=== PATIENT | female | born 1965 | race Caucasian/White ===

== ENCOUNTER 2024-01-20 10:55 | Emergency (ER) | payer BC ==
--- NOTE | 2024-01-20 11:41 | RAD REPORT ---
EXAM DESCRIPTION: RAD - Chest Single View - 01/20/2024 11:31 am CLINICAL HISTORY: COUGH Chest pain. COMPARISON: No comparisons FINDINGS: Portable technique limits examination quality. The lungs are grossly clear. The heart is normal in size. No displaced fractures. IMPRESSION: No acute intrathoracic process suspected.
[2024-01-20] MEDS ORDERED: AMLODIPINE 10 MG TAB ONE (12:05)
[2024-01-20 12:28] LABS: Specific Gravity 1.007 (1.005-1.030); Urine Bacteria <20 /HPF (<20); Urine Bilirubin NEGATIVE (Negative); Urine Blood Negative (Negative); Urine Clarity Extremely Turbid (Clear); Urine Color Colorless (Yellow); Urine Culture Reflex Order NOT NEEDED; Urine Glucose NEGATIVE (Negative); Urine Ketones NEGATIVE (Negative); Urine Microscopic Reflex YN ORDER UMIC; Urine Mucus Slight /HPF (None Seen); Urine Nitrite NEGATIVE (Negative); Urine Protein NEGATIVE (Negative); Urine RBC None Seen /HPF (None Seen); Urine Urobilinogen Normal (Normal); Urine WBC <5 /HPF (<5); Urine pH 5.5 (5.0-7.0)
[2024-01-20 12:31] LABS: Absolute Basophils 0.1 K/uL (0-0.5); Absolute Eosinophils 0.3 K/uL (0-0.5); Absolute Monocytes 0.9 K/uL (0.1-1.3); Basophils % 0.9 % (0-1.3); Eosinophils % 2.9 % (0-4.4); Hematocrit 45.5 % (36.0-45.0); Hemoglobin 15.1 g/dL (12.0-15.0); Lymphocytes % 26.5 % (15.3-44.8); MCH 28.8 pg (27.0-35.0); MCHC 33.2 g/dL (32.0-36.0); MCV 86.8 fL (80-100); MPV 8.9 fL (7.6-11.3); Monocytes % 8.1 % (3.3-12.3); Neutrophils % 61.6 % (41.7-73.7); Platelets 294 thou/uL (152-406); RBC Red Blood Cell Count 5.25 M/uL (3.86-4.86); Red Cell Distribution Width 13.6 % (12.1-15.2)
[2024-01-20 12:32] LABS: PT Prothrombin Time 11.9 SECONDS (9.5-12.5); Protime INR 1.08
[2024-01-20 12:37] LABS: ALT/SGPT 31 U/L (13-56); AST/SGOT 16 U/L (15-37); Albumin 3.5 g/dL (3.4-5.0); Albumin/Globulin Ratio 0.8 (1.1-1.8); Alkaline Phosphatase 123 U/L (45-117); BUN Blood Urea Nitrogen 16 mg/dL (7-18); Bicarbonate 27 mEq/L (21-32); Bilirubin Direct < 0.1 mg/dL (0-0.2); Bilirubin Indirect, Calculated ND mg/dL (0.2-0.8); Bilirubin Total 0.4 mg/dL (0.2-1.0); Globulin 4.2 g/dL (2.3-3.5); Glomerular Filtration Rate 87 ml/min (=/>90); Glucose Level 114 mg/dL (74-106); Magnesium 2.3 mg/dL (1.6-2.4); NT PRO-BNP 20 pg/mL (<125); Protein, Total 7.7 g/dL (6.4-8.2); Sodium Level 137 mEq/L (136-145); Troponin High Sensitivity 3.5 pg/mL (<58.9)
--- NOTE | 2024-01-20 12:55 | EDPHYS ---
Physician Documentation [facility] Name: Irma Castillo Age: 59 yrs Sex: Female : 1965 Arrival Date: 01/20/2024 Time: 10:55 Bed 5 Private MD: ED Physician Ottoniel Foster HPI: 01/19 11:31 This 59 yrs old Female presents to ER via EMS with complaints of High Blood vishnu Pressure. 11:31 The patient has elevated blood pressure and discovered this work. Onset: The vishnu symptoms/episode began/occurred just prior to arrival. Modifying factors: The symptoms are aggravated by activity, The symptoms are alleviated by remaining still. Associated signs and symptoms: Pertinent positives: dyspnea. Severity of symptoms: At its worst the blood pressure was mild, in the emergency department the blood pressure is unchanged. The patient has experienced similar episodes in the past, a few times. Historical: - Allergies: 11:02 No Known Allergies; kc6 - PMHx: 11:02 Hypertensive disorder; polycythemia; kc6 - Immunization history:: Adult Immunizations up to date. - Infectious Disease History:: Denies. - Social history:: Smoking status: Patient denies any tobacco usage or history of. ROS: 11:32 Constitutional: Negative for fever, chills, and weight loss, Eyes: Negative for injury, vishnu pain, redness, and discharge, ENT: Negative for injury, pain, and discharge, Neck: Negative for injury, pain, and swelling, Cardiovascular: Negative for chest pain, palpitations, and edema, Respiratory: Negative for shortness of breath, cough, wheezing, and pleuritic chest pain, Abdomen/GI: Negative for abdominal pain, nausea, vomiting, diarrhea, and constipation, Back: Negative for injury and pain, : Negative for injury, bleeding, discharge, and swelling, MS/Extremity: Negative for injury and deformity, Skin: Negative for injury, rash, and discoloration, Psych: Negative for depression, anxiety, suicide ideation, homicidal ideation, and hallucinations, Allergy/Immunology: Negative for hives, rash, and allergies, Endocrine: Negative for neck swelling, polydipsia, polyuria, polyphagia, and marked weight changes, Hematologic/Lymphatic: Negative for swollen nodes, abnormal bleeding, and unusual bruising, 11:32 Neuro: Positive for dizziness, Exam: 11:33 Constitutional: This is a well developed, well nourished patient who is awake, alert, vishnu and in no acute distress. Head/Face: Normocephalic, atraumatic. Eyes: Pupils equal round and reactive to light, extra-ocular motions intact. Lids and lashes normal. Conjunctiva and sclera are non-icteric and not injected. Cornea within normal limits. Periorbital areas with no swelling, redness, or edema. ENT: Nares patent. No nasal discharge, no septal abnormalities noted. Tympanic membranes are normal and external auditory canals are clear. Oropharynx with no redness, swelling, or masses, exudates, or evidence of obstruction, uvula midline. Mucous membranes moist. Neck: Trachea midline, no thyromegaly or masses palpated, and no cervical lymphadenopathy. Supple, full range of motion without nuchal rigidity, or vertebral point tenderness. No Meningismus. Chest/axilla: Normal chest wall appearance and motion. Nontender with no deformity. No lesions are appreciated. Cardiovascular: Regular rate and rhythm with a normal S1 and S2. No gallops, murmurs, or rubs. Normal PMI, no JVD. No pulse deficits. Respiratory: Lungs have equal breath sounds bilaterally, clear to auscultation and percussion. No rales, rhonchi or wheezes noted. No increased work of breathing, no retractions or nasal flaring. Back: No spinal tenderness. No costovertebral tenderness. Full range of motion. Skin: Warm, dry with normal turgor. Normal color with no rashes, no lesions, and no evidence of cellulitis. MS/ Extremity: Pulses equal, no cyanosis. Neurovascular intact. Full, normal range of motion. Neuro: Awake and alert, GCS 15, oriented to person, place, time, and situation. Cranial nerves II-XII grossly intact. Motor strength 5/5 in all extremities. Sensory grossly intact. Cerebellar exam normal. Normal gait. Psych: Awake, alert, with orientation to person, place and time. Behavior, mood, and affect are within normal limits. 11:33 ECG was reviewed by the Attending Physician. 11:33 Abdomen/GI: Inspection: abdomen appears normal, 12:26 Musculoskeletal/extremity: DVT Exam: No signs of deep vein thrombosis. no pain, no vishnu swelling, no tenderness, negative Homans' sign noted on exam, no appreciated bluish discoloration, no erythema, no increased warmth, Vital Signs: 11:00 BP 155 / 94; Pulse 73; Resp 16 S; Temp 98.3(O); Pulse Ox 97% on R/A; Weight 95.25 kg kc6 (R); Height 5 ft. 6 in. (R); 12:34 BP 144 / 92; Pulse 85; Resp 16 S; Pulse Ox 99% on R/A; kc6 13:43 BP 148 / 99; Pulse 88; Resp 16 S; Pulse Ox 99% on R/A; kc6 11:00 Body Mass Index 33.89 (95.25 kg, 167.64 cm) 6 MDM: 11:00 Patient medically screened. [facility] 11:32 Differential diagnosis: hypertensive crisis, Malignant HTN, CVA, intracerebral vishnu hemorrhage. Differential diagnosis: cardiac arrhythmia, generalized weakness, hypovolemia, idiopathic dizziness, near-syncope, TIA, vertigo. Data reviewed: vital signs, nurses notes, EMS record, lab test result(s), EKG, radiologic studies, plain films. Consideration of Admission/Observation Escalation of care including admission/observation considered. I considered the following discharge prescriptions or medication management in the emergency department Medications were administered in the Emergency Department. See MAR. Test considered but Not performed: CT: no ct brain, not indicated. Care significantly affected by the following chronic conditions: Hypertension, polycythemia. 01/19 11:00 Order name: Basic Metabolic Panel; Complete Time: 12:50 [facility] 01/19 11:00 Order name: CBC with Diff; Complete Time: 12:50 [facility] 01/19 11:00 Order name: LFT's; Complete Time: 12:50 01/19 11:00 Order name: Magnesium; Complete Time: 12:50 vishnu 01/19 11:00 Order name: NT PRO-BNP; Complete Time: 12:50 [facility] 01/19 11:00 Order name: PT-INR; Complete Time: 12:50 vishnu 01/19 11:00 Order name: Troponin HS; Complete Time: 12:50 [facility] 01/19 11:00 Order name: Urinalysis w/ reflexes; Complete Time: 12:50 [facility] 01/19 11:00 Order name: XRAY Chest (1 view); Complete Time: 12:50 [facility] 01/19 11:00 Order name: EKG; Complete Time: 11:01 [facility] 01/19 11:00 Order name: Cardiac monitoring; Complete Time: 12: [facility] 01/19 11:00 Order name: EKG - Nurse/Tech; Complete Time: 12: [facility] 01/19 11:00 Order name: IV Saline Lock; Complete Time: 12: [facility] 01/19 11:00 Order name: Labs collected and sent; Complete Time: 12: [facility] 01/19 11:00 Order name: O2 Per Protocol; Complete Time: 12: [facility] 01/19 11:00 Order name: O2 Sat Monitoring; Complete Time: 12: [facility] 01/19 12:52 Order name: PO challenge; Complete Time: 13:17 [facility] EC:33 Rate is 83 beats/min. Rhythm is regular. QRS [place] is Normal. MS interval is normal. QRS vishnu interval is normal. QT interval is normal. No Q waves. T waves are Normal. No ST changes noted. Clinical impression: No evidence of ischemia. Interpreted by me. Reviewed by me. Administered Medications: 12:13 Drug: Norvasc PO 10 mg PO once Route: PO; [facility] 12:35 Follow up: Response: No adverse reaction; Blood pressure is lowered [facility] 13:37 Drug: Potassium PO Effervescent Tablet 50 mEq PO once; dissolve in 4 ounces of water or ph juice Route: PO; 13:44 Follow up: Response: No adverse reaction [facility] Disposition Summary: 01/20/24 12:54 Discharge Ordered Notes: Location: Home vishnu Problem: new vishnu Symptoms: have improved vishnu Condition: Stable vishnu Diagnosis - Essential (primary) hypertension vishnu - Dizziness and giddiness vishnu Followup: vishnu - With: Private Physician - When: 2 - 3 days - Reason: Recheck today's complaints, Continuance of care, Re-evaluation by your physician Followup: vishnu - With: Jackson Marquez MD - When: 2 - 3 days - Reason: Recheck today's complaints, Re-evaluation by your physician Discharge Instructions: - Discharge Summary Sheet vishnu - Potassium Content of Foods vishnu - Dizziness vishnu - Hypertension, Adult vishnu - Hypertension, Adult, [id number] vishnu - How to Take Your Blood Pressure, [id number] vishnu - Aspirin and Your Heart vishnu - Hypokalemia vishnu - Managing Your Hypertension vishnu Forms: - Medication Reconciliation Form vishnu - Antibiotic Education vishnu - Prescription Opioid Use vishnu - Patient Portal Instructions vishnu - Leadership Thank You Letter vishnu - Work release form kc6 Prescriptions: - Norvasc 5 mg Oral Tablet - take 1 tablet ORAL route once daily; 20 tablet; Refills: 0, Product Selection [facility] Permitted - Potassium Chloride 20 meq Oral Packet - take 1 packet ORAL route once daily 1 packet in 6 (six) ounces of water or vishnu juice; Take after meal; 30 packet; Refills: 0, Product Selection Permitted Signatures: Dispatcher [employer] EDOttoniel Villela MD MD cha Hall, Patricia RN RN ph Lindsay Batista RN RN kc6 Corrections: (The following items were deleted from the chart) 11: 11:01 BASIC METABOLIC PANEL+C.LAB.BRZ ordered. EDMS EDMS 11: 11:01 CBC+H.LAB.BRZ ordered. EDMS EDMS 11: 11:01 HEPATIC FUNCTION+C.LAB.BRZ ordered. EDMS EDMS 11: 11:01 MAGNESIUM+C.LAB.BRZ ordered. EDMS EDMS 11: 11:01 PROBNP+C.LAB.BRZ ordered. EDMS EDMS 11: 11:01 PROTIME (+INR)+COAG.LAB.BRZ ordered. EDMS EDMS 11: 11:01 Troponin High Sensitivity+C.LAB.BRZ ordered. EDMS EDMS 11: 11:01 Urinalysis+U.LAB.BRZ ordered. EDMS EDMS
--- NOTE | 2024-01-20 12:55 | ER ---
Nurse's Notes [facility] Name: Irma Castillo Age: 59 yrs Sex: Female : 1965 Arrival Date: 01/20/2024 Time: 10:55 Bed 5 Private MD: Diagnosis: Essential (primary) hypertension;Dizziness and giddiness Presentation: 01/19 11:00 Chief complaint: EMS states: pt was at work when she began to feel lightheaded. checked kc6 her BP and it was in the 170's. reports recently increasing the dose of her HCTZ a week ago. 15mg of IV labetalol given en route by EMS. Coronavirus screen: At this time, the client does not indicate any symptoms associated with coronavirus-19. Ebola Screen: No symptoms or risks identified at this time. Initial Sepsis Screen: Does the patient meet any 2 criteria? No. Patient's initial sepsis screen is negative. Does the patient have a suspected source of infection? No. Patient's initial sepsis screen is negative. Risk Assessment: Do you want to hurt yourself or someone else? Patient reports no desire to harm self or others. Onset of symptoms was January 20, 2024. 11:00 Method Of Arrival: EMS: [facility] kc6 11:00 Acuity: JUANI 3 kc6 Historical: - Allergies: 11:02 No Known Allergies; kc6 - PMHx: 11:02 Hypertensive disorder; polycythemia; kc6 - Immunization history:: Adult Immunizations up to date. - Infectious Disease History:: Denies. - Social history:: Smoking status: Patient denies any tobacco usage or history of. Screenin:32 [facility] ED Fall Risk Assessment (Adult) History of falling in the last 3 months, kc6 including since admission No falls in past 3 months (0 pts) Confusion or Disorientation No (0 pts) Intoxicated or Sedated No (0 pts) Impaired Gait No (0 pts) Mobility Assist Device Used No (0 pt) Altered Elimination No (0 pt) Score/Fall Risk Level 0 - 2 = Low Risk. Abuse screen: Denies threats or abuse. Denies injuries from another. Nutritional screening: No deficits noted. Tuberculosis screening: No symptoms or risk factors identified. Assessment: 11:00 General: Appears in no apparent distress. comfortable, well groomed, well developed, kc6 Behavior is calm, cooperative, appropriate for age. Pain: Denies pain. Neuro: Level of Consciousness is awake, alert, obeys commands, Oriented to person, place, time, situation, Appropriate for age Reports dizziness. Cardiovascular: Capillary refill < 3 seconds. Respiratory: Airway is patent Trachea midline Respiratory effort is even, unlabored, Respiratory pattern is regular, symmetrical. GI: No signs and/or symptoms were reported involving the gastrointestinal system. : No signs and/or symptoms were reported regarding the genitourinary system. EENT: No signs and/or symptoms were reported regarding the EENT system. Derm: No signs and/or symptoms reported regarding the dermatologic system. Skin is intact, is healthy with good turgor, Skin is pink, warm \T\ dry. Musculoskeletal: No signs and/or symptoms reported regarding the musculoskeletal system. Circulation, motion, and sensation intact. Capillary refill < 3 seconds, Range of motion: intact in all extremities. 12:00 Reassessment: Patient appears in no apparent distress at this time. No changes from [facility] previously documented assessment. Patient and/or family updated on plan of care and expected duration. Pain level reassessed. Patient is alert, oriented x 3, equal unlabored respirations, skin warm/dry/pink. 13:00 Reassessment: Patient appears in no apparent distress at this time. No changes from [facility] previously documented assessment. Patient and/or family updated on plan of care and expected duration. Pain level reassessed. Patient is alert, oriented x 3, equal unlabored respirations, skin warm/dry/pink. Vital Signs: 11:00 BP 155 / 94; Pulse 73; Resp 16 S; Temp 98.3(O); Pulse Ox 97% on R/A; Weight 95.25 kg kc6 (R); Height 5 ft. 6 in. (R); 12:34 BP 144 / 92; Pulse 85; Resp 16 S; Pulse Ox 99% on R/A; kc6 13:43 BP 148 / 99; Pulse 88; Resp 16 S; Pulse Ox 99% on R/A; kc6 11:00 Body Mass Index 33.89 (95.25 kg, 167.64 cm) [facility] ED Course: 10:59 Patient arrived in ED. [facility] 11:00 Ottoniel Foster MD is Attending Physician. [facility] 11:02 Triage completed. kc6 11:02 Arm band placed on. kc6 11:03 Maintain EMS IV. Dressing intact. Good blood return noted. Site clean \T\ dry. Gauge \T\ lily 6 site: 20G RHAND. 11:33 XRAY Chest (1 view) In Process Unspecified. EDMS 12:01 Lindsay Batista, RN is Primary Nurse. kc6 12:32 Patient has correct armband on for positive identification. Placed in gown. Bed in low kc6 position. Call light in reach. Side rails up X2. Adult w/ patient. Client placed on continuous cardiac and pulse oximetry monitoring. NIBP monitoring applied. monitoring engineer on. 12:54 Jackson Marquez MD is Referral Physician. [facility] 13:53 No provider procedures requiring assistance completed. IV discontinued, intact, kc6 bleeding controlled, No redness/swelling at site. Pressure dressing applied. Administered Medications: 12:13 Drug: Norvasc PO 10 mg PO once Route: PO; kc6 12:35 Follow up: Response: No adverse reaction; Blood pressure is lowered kc 13:37 Drug: Potassium PO Effervescent Tablet 50 mEq PO once; dissolve in 4 ounces of water or ph juice Route: PO; 13:44 Follow up: Response: No adverse reaction kc6 Medication: 13:53 VIS not applicable for this client. kc6 Outcome: 12:54 Discharge ordered by . [facility] 13:53 Discharged to home ambulatory, with significant other, kc6 13:53 Condition: improved 13:53 Discharge instructions given to patient, Instructed on discharge instructions, follow up and referral plans. medication usage, Demonstrated understanding of instructions, follow-up care, medications, Prescriptions given X 2, 13:53 Patient left the ED. kc6 Signatures: Dispatcher [employer] EDNH Ottoniel Foster MD MD cha Hall, Patricia, RN RN ph Lindsay Batista RN RN kc6
[2024-01-20] MEDS ORDERED: POTASSIUM 25 MEQ EFFERV TAB ONE (13:28)
[2024-01-20 14:29] VITALS: BP 148/99; TEMP 98.3; O2SAT 99
--- NOTE | 2024-01-22 13:13 | EKG ---
Test Date: 2024-01-20 Test Time: 12:11:53 Hospice Care Consultant: DAREN MEASUREMENT RESULTS: Intervals: Rate: 83 NE: 194 QRSD: 96 QT: 396 QTc: 465 Echo: P: 69 NE: 194 QRS: 98 T: 49 INTERPRETIVE STATEMENTS: Normal sinus rhythm Rightward axis Incomplete right bundle branch block Cannot rule out Anterior infarct, age undetermined Abnormal ECG No previous ECG available for comparison Electronically Signed On 01-22-24 13:07:44 CDT by Jackson Marquez
== END 2024-01-20 13:53 | disposition home or self-care (01) ==
LOC: ER 10:55
DX: I10 Essential (primary) hypertension (principal); R42 Dizziness and giddiness
CPT/HCPCS: 36415; 71045; 80048; 80076; 81001; 83735; 83880; 84484; 85025; 85610; 93005; 99284